=== PATIENT | female | born 1960 | race Caucasian/White ===

== ENCOUNTER 2018-04-16 23:47 | Observation (INO) | payer BC ==
--- OUTSIDE RECORDS SUMMARY | 2018-04-16 23:50 | XMS REPORT | Clinical Summary ---
:1960 Author Organization [facility] Address [address] [place] [id number] Care Team Providers Name Role Phone Asked, No Pcp Primary Care Provider Unavailable Allergies Active Allergy Reactions Severity Noted Date Comments Anesthetics - Nancy High 04/01/2016 Cant wake Type- Parabens Codeine Hives 04/01/2016 Meperidine Hives 04/01/2016 Erythromycin High 04/01/2016 Difficulty breathing Fish Derived 04/01/2016 Iodine Hives High 04/01/2016 IV contrast Difficulty breathing Cephalexin Hives, Other (See 04/07/2016 Throat swelling Comments) Morphine 04/01/2016 Other Anaphylaxis, Hives High 04/01/2016 Berries Pets Environment swelling of lips tongue Penicillins High 04/01/2016 Difficulty breathing Shellfish Derived 04/01/2016 Sulfa (Sulfonamide High 04/01/2016 Difficulty breathing Antibiotics) Current Medications Prescription Sig. Disp. Refills Start Date End Date Status levothyroxine (SYNTHROID, Take 100 mcg by Active LEVOTHROID) 100 MCG tablet mouth every morning. BUDESONIDE/FORMOTEROL Inhale. Active FUMARATE (SYMBICORT INHL) fenofibrate (TRICOR) 145 Take 145 mg by Active MG tablet mouth daily. albuterol (PROVENTIL Inhale 2 puffs Active HFA;VENTOLIN HFA) 90 every 6 (six) mcg/actuation inhaler hours as needed for wheezing. Active Problems Problem Noted Date Cubital tunnel syndrome on left 04/07/2016 Impingement syndrome of right shoulder 04/01/2016 Overview: Conservative management program and will see back prn Encounters Date Type Specialty Care Team Description 03/26/2018 Orders Only Neurology Juan David Tam Jr., MD after 04/15/2017 Family History Medical History Relation Name Comments Cancer Father Heart disease Father Hypertension Father Stroke Father Heart disease Mother Hypertension Mother Thyroid disease Mother Relation Name Status Comments Father Mother Social History Tobacco Use Types Packs/Day Years Used Date Never Smoker Smokeless Tobacco: Never Used Alcohol Use Drinks/Week oz/Week Comments Yes 4 drinks/week Sex Assigned at Date Recorded Not on file Last Filed Vital Signs Not on file Plan of Treatment Health Maintenance Due Date Last Done Comments CERVICAL CANCER SCREENING 1981 BREAST CANCER SCREENING 2010 COLON CANCER SCREENING 2010 SHINGRIX VACCINE (#1) 2010 INFLUENZA VACCINE 03/17/2018 Results Not on fileafter 04/15/2017 Insurance Payer Benefit Plan / Group Subscriber ID Type Phone Address BCBS BCBS CHOICE PPO/FEDERAL EMPL PPO xxxxxxxxxxxx PPO Work: [id number] [phone] [facility] [address] [place], [place] Home: [id number]
[2018-04-17 00:38] LABS: Absolute Lymphocytes (CBC) 1.8 K/uL (0.7-4.9); Absolute Monocytes 0.6 K/uL (0.1-1.3); Absolute Neutrophil 9.7 K/uL (1.8-8.0); Basophils % 0.2 % (0-1.3); Eosinophils % 2.3 % (0-4.4); Hematocrit 39.5 % (36.0-45.0); Lymphocytes % 14.4 % (15.3-44.8); MCH 31.4 pg (27.0-35.0); MCV 91.5 fL (80-100); MPV 7.3 fL (7.6-11.3); Monocytes % 5.1 % (3.3-12.3); RBC Red Blood Cell Count 4.32 M/uL (3.86-4.86)
[2018-04-17] MEDS ORDERED: ASPIRIN 81 MG CHEWABLE TABLET ONE (00:44)
[2018-04-17] MEDS ORDERED: PANTOPRAZOLE 40 MG INJ ONE (00:44)
[2018-04-17] MEDS ORDERED: NA CHLORIDE 0.9% 1,000 ML ONE (00:44)
[2018-04-17] MEDS ORDERED: ONDANSETRON 4 MG/2 ML VIAL ONE ×2 (00:44→01:07)
[2018-04-17 00:45] LABS: Protime INR 0.96
[2018-04-17 00:57] LABS: ALT/SGPT 22 U/L (12-78); AST/SGOT 17 U/L (15-37); Albumin 4.4 g/dL (3.4-5.0); Alkaline Phosphatase 57 U/L (45-117); BUN Blood Urea Nitrogen 13 mg/dL (7-18); Bicarbonate 30 mmol/L (21-32); Bilirubin Direct < 0.1 mg/dL (0-0.2); Bilirubin Total 0.3 mg/dL (0.2-1.0); CKMB Creatine Kinase MB 1.1 ng/mL (0.3-3.6); Creatine Phosphokinase 95 U/L (26-192); Glucose Level 111 mg/dL (74-106); Magnesium 2.4 mg/dL (1.8-2.4); NT PRO-BNP 70 pg/mL (<125); Potassium 3.3 mmol/L (3.5-5.1); Protein, Total 7.6 g/dL (6.4-8.2); Sodium Level 139 mmol/L (136-145); Troponin (Emerg Dept Use Only) < 0.02 ng/mL (0.0-0.045)
[2018-04-17] MEDS ORDERED: FAMOTIDINE 20 MG/2 ML VIAL IV ONE (01:07)
[2018-04-17] MEDS ORDERED: NITROGLYCERIN 0.4 MG/TAB SL ONE (01:29)
[2018-04-17] MEDS ORDERED: MAGNES/ALUMIN/SIMET 30ML UCUP ONE (02:18)
[2018-04-17] MEDS ORDERED: NA CHLORIDE 0.9% 250 ML ONE (02:58)
[2018-04-17] MEDS ORDERED: PROMETHAZINE 25 MG/ML VIAL ONE (02:58)
--- NOTE | 2018-04-17 03:02 | ER ---
Nurse's Notes [facility] Name: Cecelia Fitch Age: 58 yrs Sex: Female : 1960 Arrival Date: 04/16/2018 Time: 23:48 Bed 19 Private MD: Diagnosis: Chest pain, unspecified Presentation: 04/17 00:07 Presenting complaint: Patient states: "I haven been under a lot of stress recently and jd3 today I started to have really bad reflux as well as some heart burn. my throat and back are really tense and sore feeling from hunching over so much as well.". Transition of care: patient was not received from another setting of care. Onset of symptoms was April 17, 2018. Risk Assessment: Do you want to hurt yourself or someone else? Patient reports no desire to harm self or others. Initial Sepsis Screen: Does the patient meet any 2 criteria? No. Patient's initial sepsis screen is negative. Does the patient have a suspected source of infection? No. Patient's initial sepsis screen is negative. Care prior to arrival: None. 00:07 Method Of Arrival: Ambulatory jd3 00:07 Acuity: PEDRO 3 jd3 Historical: - Allergies: 00:17 Sulfa (Sulfonamide Antibiotics); jd3 00:17 Penicillins; jd3 00:17 OPIOID ANALGESICS; jd3 00:17 "injections"; jd3 00:17 Iodinated Contrast Media - IV Dye; jd3 00:17 Iodine; jd3 00:17 Keflex; jd3 - Home Meds: 00:17 Albuterol Inhl [Active]; Synthroid Oral [Active]; symbicort [Active]; jd3 - PMHx: 00:17 Hypothyroidism; Asthma; jd3 - PSHx: 00:17 neck sx; jd3 - Immunization history:: Adult Immunizations not up to date. - Social history:: Smoking status: Patient/guardian denies using tobacco. - Ebola Screening: : Patient negative for fever greater than or equal to 101.5 degrees Fahrenheit, and additional compatible Ebola Virus Disease symptoms. Screenin:22 Abuse screen: Denies threats or abuse. Nutritional screening: No deficits noted. jd3 Tuberculosis screening: No symptoms or risk factors identified. Fall Risk Ambulatory Aid- None/Bed Rest/Nurse Assist (0 pts). Gait- Normal/Bed Rest/Wheelchair (0 pts) Mental Status- Oriented to own ability (0 pts). Total Austin Fall Scale indicates No Risk (0-24 pts). Assessment: 00:19 General: Appears uncomfortable, Behavior is cooperative, anxious. Pain: Complains of jd3 pain in back and throat Pain currently is 8 out of 10 on a pain scale. Quality of pain is described as sharp. Neuro: Level of Consciousness is awake, alert, obeys commands, Oriented to person, place, time, situation, Appropriate for age. Cardiovascular: Capillary refill < 3 seconds Patient's skin is warm and dry. Respiratory: Airway is patent Respiratory effort is even, unlabored, Respiratory pattern is regular, symmetrical, Denies shortness of breath. GI: Abdomen is flat, non-distended, Reports indigestion, reflux Patient currently denies abdominal pain. : No signs and/or symptoms were reported regarding the genitourinary system. EENT: No signs and/or symptoms were reported regarding the EENT system. Derm: Skin is intact, Skin is dry, Skin is normal, Skin temperature is warm. Musculoskeletal: Circulation, motion, and sensation intact. Range of motion: intact in all extremities. 01:20 Reassessment: Patient appears in no apparent distress at this time. Patient and/or jd3 family updated on plan of care and expected duration. Pain level reassessed. Patient is alert, oriented x 3, equal unlabored respirations, skin warm/dry/pink. provider at bedside discussing plan of care. 01:35 Reassessment: pt reports anxiety about taking sublingual Nitro and chewable Aspirin, pt jd3 reports not wanting blood pressure to go down to much and or getting nauseous or worsening the reflux symptoms. provider notified and pt reassured. 02:06 Reassessment: Patient appears in no apparent distress at this time. Patient and/or jd3 family updated on plan of care and expected duration. Pain level reassessed. Patient is alert, oriented x 3, equal unlabored respirations, skin warm/dry/pink. provider at bedside discussing plan of care with pt. 03:20 Reassessment: Patient appears in no apparent distress at this time. Patient and/or jd3 family updated on plan of care and expected duration. Pain level reassessed. Patient is alert, oriented x 3, equal unlabored respirations, skin warm/dry/pink. 04:42 Reassessment: Patient appears in no apparent distress at this time. Patient and/or jd3 family updated on plan of care and expected duration. Pain level reassessed. Patient is alert, oriented x 3, equal unlabored respirations, skin warm/dry/pink. Vital Signs: 00:18 BP 144 / 88; Pulse 79; Resp 17 S; Temp 98.7(O); Pulse Ox 99% on R/A; Weight 60.33 kg jd3 (R); Height 5 ft. 9 in. (175.26 cm) (R); Pain 8/10; 01:20 BP 140 / 67 LA; Pulse 80; Resp 17 S; Pulse Ox 99% on R/A; jd3 01:41 BP 124 / 70; Pulse 75; Resp 18 S; Pulse Ox 98% on R/A; jd3 03:18 BP 130 / 63; Pulse 77; Resp 16 S; Pulse Ox 100% on R/A; jd3 04:39 BP 138 / 87; Pulse 87; Resp 16 S; Pulse Ox 99% on R/A; jd3 00:18 Body Mass Index 19.64 (60.33 kg, 175.26 cm) jd3 ED Course: 04/16 23:48 Patient arrived in ED. am2 23:59 Nilay Be PA is PHCP. cp 23:59 Avelino Dupont MD is Attending Physician. cp 09 00:07 Perry Chacon, TATUM is Primary Nurse. jd3 00:09 Triage completed. jd3 00:19 Arm band placed on. jd3 00:22 Patient has correct armband on for positive identification. Placed in gown. Bed in low jd3 position. Call light in reach. Side rails up X 1. 00:23 Inserted saline lock: 20 gauge in right antecubital area, using aseptic technique. ao Blood collected. 00:23 EKG done, by ED staff, reviewed by Nilay RANGEL. ao 00:27 X-ray completed. Portable x-ray completed in exam room. Patient tolerated procedure mh1 well. 00:58 XRAY Chest (1 view) In Process Unspecified. EDMS 01:[address] via stretcher. kw1 02:08 Note: CT exam not performed as patient is allergic to iodine contrast.. Patient moved kw1 back from CT. 02:[address] via stretcher. kw1 02:37 CT Chest Wo Con In Process Unspecified. EDMS 02:39 CT completed. Patient tolerated procedure well. Patient moved back from CT. kw1 03:00 Zack Avendano MD is Hospitalizing Provider. cp 03:05 EKG done, by ED staff, reviewed by Nilay RANGEL. ao 04:37 No provider procedures requiring assistance completed. Patient admitted, IV remains in jd3 place. Administered Medications: 00:52 Drug: ProTONIX 40 mg Route: IVP; Site: right antecubital; jd3 01:19 Follow up: Response: No adverse reaction jd3 00:52 Drug: Zofran 4 mg Route: IVP; Site: right antecubital; jd3 01:20 Follow up: Response: No adverse reaction jd3 00:52 Drug: NS 0.9% 1000 ml Route: IV; Rate: 1 bolus; Site: right antecubital; jd3 03:23 Follow up: Response: No adverse reaction; IV Status: Completed infusion; IV Intake: jd3 1000ml 01:05 Drug: Zofran 4 mg Route: IVP; Site: right antecubital; jd3 02:12 Follow up: Response: No adverse reaction jd3 01:05 Drug: Pepcid 20 mg Route: IVP; Site: right antecubital; jd3 02:12 Follow up: Response: No adverse reaction jd3 02:10 Not Given (Patient Refused): Aspirin Chewable Tablet 324 mg PO once; 81 mg tablets x 4 jd3 02:10 Not Given (Patient Refused): Nitroglycerin 0.4 mg Sublingual once jd3 02:15 Drug: Maalox Suspension (200 mg-200 mg-20 mg/5 mL) 30 ml Route: PO; jd3 03:05 Follow up: Response: No adverse reaction; pt took 5 ml of the total 30ml and the jd3 reported not being able to finish. provider noted, no new orders at this time. 03:00 Drug: Phenergan 25 mg Route: IVP; Site: right antecubital; jd3 03:30 Follow up: Response: No adverse reaction jd3 03:05 Not Given (Patient Refused): fentaNYL (PF) 25 mcg IVP once jd3 03:13 Drug: Lovenox 60 mg {Note: given by YESENIA RN.} Route: Sub-Q; Site: abdomen; jd3 04:00 Follow up: Response: No adverse reaction jd3 Intake: 03:23 IV: 1000ml; Total: 1000ml. jd3 Outcome: 03:02 Decision to Hospitalize by Provider. cp 04:37 Condition: stable jd3 04:37 Instructed on the need for admit, Demonstrated understanding of instructions. 04:39 Admitted to Med/surg accompanied by nurse, via stretcher, room 423, with chart, Report jd3 called to Lux WINN 04:59 Patient left the ED. jd3 Signatures: Dispatcher [employer] EDMS Jazzy Syed 1 Nilay Be PA PA cp Raymond Morris, RN RN Deborah Jones Jonathon, RN RN Miranda Ruth kw1
--- NOTE | 2018-04-17 03:02 | EDPHYS ---
Physician Documentation [facility] Name: Cecelia Fitch Age: 58 yrs Sex: Female : 1960 Arrival Date: 04/16/2018 Time: 23:48 Bed 19 Private MD: ED Physician Avelino Dupnot HPI: 04/17 00:05 This 58 yrs old Female presents to ER via Ambulatory with complaints of cp reflux. 00:05 The patient or guardian reports chest pain that is located primarily in the substernal cp area. 00:05 Onset: last night. Associated signs and symptoms: Pertinent positives: nausea, cp vomiting, upper back pain, Pertinent negatives: cough, diaphoresis, shortness of breath, syncope. The chest pain is described as burning. Duration: The patient or guardian reports a single episode, that is still ongoing. Severity of pain: in the emergency department the pain is unchanged despite home interventions. Historical: - Allergies: 00:17 Sulfa (Sulfonamide Antibiotics); jd3 00:17 Penicillins; jd3 00:17 OPIOID ANALGESICS; jd3 00:17 "injections"; jd3 00:17 Iodinated Contrast Media - IV Dye; jd3 00:17 Iodine; jd3 00:17 Keflex; jd3 - Home Meds: 00:17 Albuterol Inhl [Active]; Synthroid Oral [Active]; symbicort [Active]; jd3 - PMHx: 00:17 Hypothyroidism; Asthma; jd3 - PSHx: 00:17 neck sx; jd3 - Immunization history:: Adult Immunizations not up to date. - Social history:: Smoking status: Patient/guardian denies using tobacco. - Ebola Screening: : Patient negative for fever greater than or equal to 101.5 degrees Fahrenheit, and additional compatible Ebola Virus Disease symptoms. ROS: 00:10 Constitutional: Negative for body aches, chills, fever, poor PO intake. cp 00:10 Eyes: Negative for injury, pain, redness, and discharge. cp 00:10 ENT: Positive for sore throat, Negative for drainage from ear(s), ear pain, difficulty swallowing, difficulty handling secretions. 00:10 Cardiovascular: Positive for chest pain, of the retrosternal, Negative for edema, palpitations. 00:10 Respiratory: Negative for cough, shortness of breath, wheezing. 00:10 Abdomen/GI: Positive for nausea, vomiting, Negative for abdominal pain, diarrhea, constipation, anorexia, black/tarry stool, rectal bleeding. 00:10 Back: Positive for pain at rest, of the upper back. 00:10 Skin: Negative for cellulitis, rash. 00:10 Neuro: Negative for altered mental status, dizziness, headache, syncope, near syncope, weakness. 00:10 All other systems are negative. Exam: 00:15 Constitutional: The patient appears in no acute distress, alert, awake, cp non-diaphoretic, non-toxic, well developed, well nourished, uncomfortable. 00:15 Head/Face: Normocephalic, atraumatic. Eyes: Pupils equal round and reactive to light, cp extra-ocular motions intact. Lids and lashes normal. Conjunctiva and sclera are non-icteric and not injected. Cornea within normal limits. Periorbital areas with no swelling, redness, or edema. ENT: Nares patent. No nasal discharge, no septal abnormalities noted. Tympanic membranes are normal and external auditory canals are clear. Oropharynx with no redness, swelling, or masses, exudates, or evidence of obstruction, uvula midline. Mucous membranes moist. Neck: Trachea midline, no thyromegaly or masses palpated, and no cervical lymphadenopathy. Supple, full range of motion without nuchal rigidity, or vertebral point tenderness. No Meningismus. Chest/axilla: Normal chest wall appearance and motion. Nontender with no deformity. No lesions are appreciated. 00:15 Cardiovascular: Rate: normal, Rhythm: regular, Pulses: Pulses are 2+ in right radial artery and left radial artery. Heart sounds: murmur, not appreciated, Edema: is not appreciated, JVD: is not appreciated. 00:15 Respiratory: the patient does not display signs of respiratory distress, Respirations: normal, no use of accessory muscles, no retractions, no splinting, no tachypnea, labored breathing, is not present, Breath sounds: are clear throughout, no decreased breath sounds, no stridor, no wheezing. 00:15 Abdomen/GI: Inspection: abdomen appears normal, Bowel sounds: active, all quadrants, Palpation: abdomen is soft and non-tender, in all quadrants, rebound tenderness, is not appreciated, voluntary guarding, is not appreciated, involuntary guarding, is not appreciated. 00:15 Back: pain, that is mild, of the upper back between shoulder blades, ROM is normal, CVA tenderness, is absent, muscle spasm, is not present. 00:15 Skin: cellulitis, is not appreciated, no rash present. 00:15 Neuro: Orientation: to person, place \\T\\ time. Mentation: lucid, able to follow commands, Cerebellar function: is grossly normal, Motor: moves all fours, strength is normal, Sensation: no obvious gross deficits. 00:30 ECG was reviewed by the Attending Physician. cp 03:06 ECG was reviewed by the Attending Physician. cp Vital Signs: 00:18 BP 144 / 88; Pulse 79; Resp 17 S; Temp 98.7(O); Pulse Ox 99% on R/A; Weight 60.33 kg jd3 (R); Height 5 ft. 9 in. (175.26 cm) (R); Pain 8/10; 01:20 BP 140 / 67 LA; Pulse 80; Resp 17 S; Pulse Ox 99% on R/A; jd3 01:41 BP 124 / 70; Pulse 75; Resp 18 S; Pulse Ox 98% on R/A; jd3 03:18 BP 130 / 63; Pulse 77; Resp 16 S; Pulse Ox 100% on R/A; jd3 04:39 BP 138 / 87; Pulse 87; Resp 16 S; Pulse Ox 99% on R/A; jd3 00:18 Body Mass Index 19.64 (60.33 kg, 175.26 cm) jd3 MDM: 04/16 23:59 Patient medically screened. cp 04/17 01:00 Differential diagnosis: abnormal EKG, acute myocardial infarction, acute pericarditis, cp anxiety, chest wall pain, cholecystitis, Cholelithiasis costochondritis, esophagitis, gastritis, pancreatitis, pleurisy, pneumonia, pneumothorax, stable angina, thoracic aortic disection, unstable angina. 03:00 The patient was not given aspirin in the Emergency Department. Aspirin not given, cp patient refused. 03:00 Data reviewed: vital signs, nurses notes, lab test result(s), EKG, radiologic studies, cp plain films, and as a result, I will admit patient, patient continues to c/o chest pain. Test interpretation: by ED physician or midlevel provider: ECG, plain radiologic studies. 04/17 00:09 Order name: Basic Metabolic Panel; Complete Time: 01:04 cp 04/17 01:05 Interpretation: Normal except: K 3.3; GLUC 111; GFR 64. cp 04/17 00:09 Order name: CBC with Diff; Complete Time: 01:05 cp 04/17 01:05 Interpretation: Normal except: WBC 12.4; MPV 7.3; NICO% 78.0; LYM% 14.4; NEUT A 9.7. cp 04/17 00:09 Order name: Ckmb; Complete Time: 01:05 cp 04/17 00:09 Order name: CPK; Complete Time: 01:05 cp 04/17 00:09 Order name: LFT's; Complete Time: 01:05 cp 04/17 00:09 Order name: Magnesium; Complete Time: 01:05 cp 04/17 00:09 Order name: NT PRO-BNP; Complete Time: 01:05 cp 04/17 00:09 Order name: PT-INR; Complete Time: 01:05 cp 04/17 00:09 Order name: Ptt, Activated; Complete Time: 01:05 cp 04/17 00:09 Order name: Troponin (emerg Dept Use Only); Complete Time: 01:05 cp 04/17 01:05 Interpretation: TROPED < 0.02; Reviewed. cp 04/17 00:09 Order name: XRAY Chest (1 view) cp 04/17 02:11 Order name: CT Chest Wo Con cp 04/17 02:12 Order name: Troponin I; Complete Time: 03:56 cp 04/17 00:09 Order name: EKG; Complete Time: 00:10 cp 04/17 00:09 Order name: Cardiac monitoring; Complete Time: 00:33 cp 04/17 00:09 Order name: EKG - Nurse/Tech; Complete Time: 00:33 cp 04/17 00:09 Order name: IV Saline Lock; Complete Time: 00:33 cp 04/17 00:09 Order name: Labs collected and sent; Complete Time: 00:33 cp 04/17 00:09 Order name: O2 Per Protocol; Complete Time: 00:33 cp 04/17 00:09 Order name: O2 Sat Monitoring; Complete Time: 00:34 cp EC:30 Rate is 76 beats/min. Rhythm is regular. MS interval is normal. QRS interval is normal. cp QT interval is normal. Interpreted by me. Reviewed by me. 03:06 Rate is 77 beats/min. MS interval is normal. QRS interval is normal. QT interval is cp normal. Interpreted by me. Reviewed by me. Administered Medications: 00:52 Drug: ProTONIX 40 mg Route: IVP; Site: right antecubital; jd3 01:19 Follow up: Response: No adverse reaction jd3 00:52 Drug: Zofran 4 mg Route: IVP; Site: right antecubital; jd3 01:20 Follow up: Response: No adverse reaction jd3 00:52 Drug: NS 0.9% 1000 ml Route: IV; Rate: 1 bolus; Site: right antecubital; jd3 03:23 Follow up: Response: No adverse reaction; IV Status: Completed infusion; IV Intake: jd3 1000ml 01:05 Drug: Zofran 4 mg Route: IVP; Site: right antecubital; jd3 02:12 Follow up: Response: No adverse reaction jd3 01:05 Drug: Pepcid 20 mg Route: IVP; Site: right antecubital; jd3 02:12 Follow up: Response: No adverse reaction jd3 02:10 Not Given (Patient Refused): Aspirin Chewable Tablet 324 mg PO once; 81 mg tablets x 4 jd3 02:10 Not Given (Patient Refused): Nitroglycerin 0.4 mg Sublingual once jd3 02:15 Drug: Maalox Suspension (200 mg-200 mg-20 mg/5 mL) 30 ml Route: PO; jd3 03:05 Follow up: Response: No adverse reaction; pt took 5 ml of the total 30ml and the jd3 reported not being able to finish. provider noted, no new orders at this time. 03:00 Drug: Phenergan 25 mg Route: IVP; Site: right antecubital; jd3 03:30 Follow up: Response: No adverse reaction jd3 03:05 Not Given (Patient Refused): fentaNYL (PF) 25 mcg IVP once jd3 03:13 Drug: Lovenox 60 mg {Note: given by YESENIA RN.} Route: Sub-Q; Site: abdomen; jd3 04:00 Follow up: Response: No adverse reaction jd3 Disposition: 04/17/18 03:02 Hospitalization ordered by Zack Avendano for Observation. Preliminary diagnosis is Chest pain, unspecified. - Bed requested for Telemetry/MedSurg (observation). - Status is Observation. jd3 - Condition is Stable. - Problem is new. - Symptoms have improved. UTI on Admission? No Addendum: 04/19/2018 10:12 Co-signature as Attending Physician, Avelino Dupont MD. g s Signatures: Dispatcher [employer] EDMD Jazzy Kessler RN RN [place], Nilay, PA PA Avelino Durán MD MD Perry Chacon RN RN jd3 Corrections: (The following items were deleted from the chart) 04/17 02:09 01:08 Chest Angio+CT.RAD.BRZ ordered. EDMD EDMS 03:04 03:02 Hospitalization Ordered by Zack Avendano MD for Observation. Preliminary diagnosis is Chest pain, unspecified. Bed requested for Telemetry/MedSurg (observation). Status is Observation. Condition is Stable. Problem is new. Symptoms have improved. UTI on Admission? No. 04:59 03:04 04/17/2018 03:02 Hospitalization Ordered by Zack Avendano MD for Observation. jd3 Preliminary diagnosis is Chest pain, unspecified. Bed requested for Telemetry/MedSurg (observation). Status is Observation. Condition is Stable. Problem is new. Symptoms have improved. UTI on Admission? No.
[2018-04-17] MEDS ORDERED: ENOXAPARIN 60 MG/0.6 ML SQ ONE (03:14)
[2018-04-17] MEDS ORDERED: ACETAMINOPHEN 500 MG TAB PO PRN (03:37)
[2018-04-17 05:10] VITALS: O2SAT 99
[2018-04-17 05:51] VITALS: BMI 19.5
--- NOTE | 2018-04-17 08:15 | RAD REPORT ---
EXAM DESCRIPTION: RAD - Chest Single View - 04/17/2018 12:58 am CLINICAL HISTORY: nausea/vomiting<Reason For Exam>nausea/vomiting COMPARISON: Thorax Wo Con dated 04/17/2018<Comparisons> TECHNIQUE: AP portable chest image was obtained 0021 hours . FINDINGS: No failure, infiltrate or mass. Nipple shadows overlie each lower lung field. Interstitial markings are mildly prominent believed be baseline. Heart and vasculature are normal. No measurable pleural effusion and no pneumothorax. No gross bony abnormality seen. No acute aortic findings suspec elmo. IMPRESSION: No acute cardiopulmonary process.
--- NOTE | 2018-04-17 08:24 | RAD REPORT ---
EXAM DESCRIPTION: CT - Thorax Wo Con - 04/17/2018 4:36 am CLINICAL HISTORY: Heartburn, reflux, chest pain A preliminary report was provided at the time of the study and reviewed prior to final report. COMPARISON: No comparisons<Comparisons> TECHNIQUE: Axial 5 mm thick images of the chest were obtained without IV contrast. All CT scans are performed using dose optimization technique as appropriate and may include automated exposure control or mA/KV adjustment according to patient size. FINDINGS: No mass or infiltrate in the lung parenchyma. No pleural thickening or pleural effusion. N o pneumothorax. Minimal apical scarring present. No abnormal mediastinal or hilar masses or lymphadenopathy seen. No gross aortic or pulmonary artery finding suspected. No pericardial thickening or effusion. Esophagus is mildly dilated and filled wit h fluid. There is fluid material in the distal most esophagus at the GE junction. This could be reflu x gastric content or possibly distal esophageal fluid bolus obstruction. Small hiatal hernia can have this appearance as well. No chest wall mass or abnormal axillary lymphadenopathy. IMPRESSION: Dilated fluid-filled stomach with food material in the distal most esophagus at the GE j unction. This could be reflux of gastric content, obstructive fluid bolus or possible small hiatal he rnia. No acute lung parenchymal process.
--- NOTE | 2018-04-17 08:34 | P.HP ---
Certification for Inpatient Patient admitted to: Observation With expected LOS: <2 Midnights Patient will require the following post-hospital care: None Practitioner: I am a practitioner with admitting privileges, knowledge of patient current condition, hospital course, and medical plan of care. Services: Services provided to patient in accordance with Admission requirements found in Title 42 Section 412.3 of the Code of Federal Regulations Patient History Date of Service: 04/17/18 Reason for admission: chest pain rule out History of Present Illness: patient is a 58-year-old female came to the hospital with chest pressure. Pain was mainly in the epigastric region. The pain was not subsiding so she came to the hospital for evaluation. In the emergency room she had an episode were she had to vomit. After the emesis she said the pain subsided. She currently is feeling much better without any pain. Her lab workup has been unremarkable. Clinically she appears to be doing well. She looks to be in good health. Her troponins are negative. Will follow her troponins and if negative then she will can follow up as an outpatient for further workup as an outpatient. Allergies Iodinated Contrast- Oral and IV Dye Allergy (Verified 04/17/18 03:31) Itching/Hives/Rash Home Medications: Albuterol Inhaler [Ventolin Inhaler] 2 puff IH Q6H PRN 04/17/18 Budesonide/Formoterol Fumarate [Symbicort 160-4.5 Mcg Inhaler] 2 puff IH DAILY 04/17/18 Fenofibrate Nanocrystallized [Fenofibrate] 145 mg PO DAILY 04/17/18 Levothyroxine [Synthroid*] 0.1 mg PO [id number] 04/17/18 - Past Medical/Surgical History Has patient received pneumonia vaccine in the past: No Diabetic: No -: [place] -: Hypothyroid -: Asthma -: Neck Sx - Family History Father Family History: Reviewed- Non-Contributory - Social History Smoking Status: Never smoker Alcohol use: Yes CD- Drugs: No Caffeine use: Yes Place of Residence: Home Review of Systems 10-point ROS is otherwise unremarkable Physical Examination - Vital Signs Temperature: 98.9 F Blood Pressure: 138/87 Pulse: 87 Respirations: 16 Pulse Ox (%): 100 - Physical Exam General: Alert, In no apparent distress, Oriented x3 HEENT: Atraumatic, PERRLA, Mucous membr. moist/pink, EOMI, Sclerae nonicteric Neck: Supple, 2+ carotid pulse no bruit, No LAD, Without JVD or thyroid abnormality Respiratory: Clear to auscultation bilaterally, Normal air movement Cardiovascular: Regular rate/rhythm, Normal S1 S2 Gastrointestinal: Normal bowel sounds, Soft and benign, Non-distended, No tenderness Musculoskeletal: No clubbing, No swelling, No tenderness Integumentary: No rashes Neurological: Normal gait, Normal speech, Normal strength at 5/5 x4 extr, Normal tone, Sensation intact, Cranial nerves 3-12 intact, Normal affect Lymphatics: No axilla or inguinal lymphadenopathy - Studies Laboratory Data (last 24 hrs) 04/17/18 02:50: Troponin I < 0.02 04/17/18 00:20: PT 11.3, INR 0.96, APTT 29.8 04/17/18 00:20: WBC 12.4 H, Hgb 13.6, Hct 39.5, Plt Count 255 04/17/18 00:20: Sodium 139, Potassium 3.3 L, BUN 13, Creatinine 0.90, Glucose 111 H, Magnesium 2.4, Total Bilirubin 0.3, AST 17, ALT 22, Alkaline Phosphatase 57 Assessment & Plan - Problems (Diagnosis) (1) Chest pain, rule out acute myocardial infarction Current Visit: Yes Status: Acute (2) Epigastric pain Current Visit: Yes Status: Acute (3) Nausea & vomiting Current Visit: Yes Status: Acute (4) Gastritis Current Visit: Yes Status: Acute - Plan 1. Serial troponins and EKG 2. IV hydration and anti emetics 3. Echocardiogram and stress test as an outpatient if her workup is negative and patient 4. Anti-platelet therapy, anti coagulation, beta-dana, statin, and O2 as needed 5. IV morphine for pain 6. Nitro p.r.n. Discharge Plan: Home Plan to discharge in: 24 Hours - Advance Directives Does patient have a Living Will: No Does patient have a Durable POA for Healthcare: No - Code Status/Comfort Care Code Status Assessed: Yes Code Status: Full Code Critical Care: No Time Spent Managing PTS Care (In Minutes): 50
[2018-04-17] MEDS ORDERED: ASPIRIN EC 81 MG TAB PO SCH (09:00)
[2018-04-17] MEDS ORDERED: METOPROLOL TAR 50 MG TAB PO SCH (09:00)
[2018-04-17 15:19] VITALS: BP 119/57; TEMP 97.7
--- NOTE | 2018-04-18 00:55 | P.DS ---
Discharge Date: 04/17/18 Disposition: ROUTINE DISCHARGE Discharge Condition: GOOD Reason for Admission: chest pain rule out - Problems (1) Chest pain, rule out acute myocardial infarction Status: Acute (2) Epigastric pain Status: Acute (3) Nausea & vomiting Status: Acute (4) Gastritis Status: Acute Brief History of Present Illness: patient is a 58-year-old female came to the hospital with chest pressure. Pain was mainly in the epigastric region. The pain was not subsiding so she came to the hospital for evaluation. In the emergency room she had an episode were she had to vomit. After the emesis she said the pain subsided. She currently is feeling much better without any pain. Her lab workup has been unremarkable. Clinically she appears to be doing well. She looks to be in good health. Her troponins are negative. Will follow her troponins and if negative then she will can follow up as an outpatient for further workup as an outpatient. Hospital Course: Patient did well during hospital stay. Serial troponins and EKG were negative. Patient felt better after her emesis and did not have any more chest pain. Patient is stable for discharge home with outpatient follow-up with her primary care provider. She should see her [facility] in 1-2 weeks for outpatient cardiac testing. Vital Signs/Physical Exam: Temp Pulse Resp BP Pulse Ox 97.7 F 75 18 119/57 L 98 04/17/18 12:00 04/17/18 12:00 04/17/18 12:00 04/17/18 12:00 04/17/18 12:00 General: Alert, In no apparent distress, Oriented x3 Laboratory Data at Discharge: WBC 12.4 K/uL (4.3-10.9) H 04/17/18 00:20 Hgb 13.6 g/dL (12.0-15.0) 04/17/18 00:20 Hct 39.5 % (36.0-45.0) 04/17/18 00:20 Plt Count 255 K/uL (152-406) 04/17/18 00:20 PT 11.3 SECONDS (9.5-12.5) 04/17/18 00:20 INR 0.96 04/17/18 00:20 APTT 29.8 SECONDS (24.3-36.9) 04/17/18 00:20 Sodium 139 mmol/L (136-145) 04/17/18 00:20 Potassium 3.3 mmol/L (3.5-5.1) L 04/17/18 00:20 BUN 13 mg/dL (7-18) 04/17/18 00:20 Creatinine 0.90 mg/dL (0.55-1.3) 04/17/18 00:20 Glucose 111 mg/dL (74-106) H 04/17/18 00:20 Magnesium 2.4 mg/dL (1.8-2.4) 04/17/18 00:20 Total Bilirubin 0.3 mg/dL (0.2-1.0) 04/17/18 00:20 AST 17 U/L (15-37) 04/17/18 00:20 ALT 22 U/L (12-78) 04/17/18 00:20 Alkaline Phosphatase 57 U/L (45-117) 04/17/18 00:20 Troponin I < 0.02 ng/mL (0.0-0.045) 04/17/18 12:03 Home Medications: Albuterol Inhaler [Ventolin Inhaler] 2 puff IH Q6H PRN 04/17/18 Budesonide/Formoterol Fumarate [Symbicort 160-4.5 Mcg Inhaler] 2 puff IH DAILY 04/17/18 Fenofibrate Nanocrystallized [Fenofibrate] 145 mg PO DAILY 04/17/18 Levothyroxine [Synthroid*] 0.1 mg PO [id number] 04/17/18 Ondansetron [Zofran] 4 mg PO Q6H PRN #10 tab 04/17/18 New Medications: Ondansetron [Zofran] 4 mg PO Q6H PRN #10 tab PRN Reason: Nausea / Vomiting Patient Discharge Instructions: OK TO DC IV AND DC HOME. FOLLOW-UP WITH PRIMARY CARE PROVIDER IN 1-2 WEEKS. FOLLOW-UP WITH CARDIOLOGY IN 1-2 WEEKS. RETURN TO THE ER IF SYMPTOMS WORSEN. CALL or TEXT DR. CRONIN AT [phone] IF ANY QUESTIONS REGARDING HOSPITAL STAY. PLEASE CALL THE FLOOR AT [phone] IF ANY MEDICATION OR NURSING QUESTIONS. Diet: AHA Activity: Fall precautions Followup: Oleg Mosqueda MD [ACTIVE - CAN ADMIT] - 1-2 Weeks (Call for appointment) Time spent managing pt's care (in minutes): 15
--- NOTE | 2018-04-18 08:39 | EKG ---
Test Date: 2018-04-17 Test Time: 00:23:24 Leasing Coordinator: JOHN MEASUREMENT RESULTS: Intervals: Rate: 76 [place]: 148 QRSD: 80 QT: 408 QTc: 459 [place]: P: 67 [place]: 148 QRS: 90 T: 174 INTERPRETIVE STATEMENTS: Normal sinus rhythm Rightward axis ST & T wave abnormality, consider inferior ischemia Abnormal ECG No previous ECG available for comparison Electronically Signed On 04-18-18 08:36:50 CDT by Oleg Mosqueda
[2018-04-18] MEDS ORDERED: ENOXAPARIN 40 MG/0.4 ML SQ SCH (09:00)
--- NOTE | 2018-04-19 07:58 | EKG ---
Test Date: 2018-04-17 Test Time: 02:56:52 Hearing Aid Assembly Supervisor: YESENIA MEASUREMENT RESULTS: Intervals: Rate: 77 [place]: 152 QRSD: 84 QT: 420 QTc: 475 [place]: P: 59 [place]: 152 QRS: 86 T: 67 INTERPRETIVE STATEMENTS: Normal sinus rhythm Normal ECG Compared to ECG 04/17/2018 00:23:24 Right-axis deviation no longer present ST (T wave) deviation no longer present Possible ischemia no longer present Electronically Signed On 04-19-18 07:55:25 CDT by Oleg Mosqueda
== END 2018-04-17 14:45 | disposition home or self-care (01) ==
LOC: ER 23:47 → ERHOLD 04-17 03:16 → 4TH 04-17 04:37
PROVIDERS: ADMIT Hospitalist; ATTEND Hospitalist
DX: R07.9 Chest pain, unspecified (principal); K29.70 Gastritis, unspecified, without bleeding; E03.9 Hypothyroidism, unspecified; E06.3 Autoimmune thyroiditis
CPT/HCPCS: 36415; 71045; 71250; 80048; 80076; 82550; 82553; 83735; 83880; 84484; 85025; 85610; 85730; 93005; 96361; 96372; 96374; 96375; 99285; C9113; G0378; J1650; J2405; J2550; J7030